=== PATIENT | female | born 1970 | race Caucasian/White ===

== ENCOUNTER 2017-10-22 10:35 | Emergency (ER) | payer OTHER ==
[~2017-10-22] VITALS: Ht 165.1 cm; Wt 108.5 kg
[~2017-10-22 10:35] MED LIST: NAPR250T57 PO; NAPR500 PO
[2017-10-22 10:44] VITALS: BP 124/82; PULSE 75; RESP 18; TEMP 97.5; O2SAT 97
[2017-10-22] MEDS ORDERED: IBUP1TAB7 PO (11:44)
[2017-10-22] MEDS ORDERED: TRAM50TA PO (11:44)
--- NOTE | 2017-10-22 11:44 | PD ---
HPI Chief Complaint: Injury Time Seen by Provider: 11:31 Travel History International Travel<30 days: No Contact w/Intl Traveler<30days: No Traveled to known affect area: No History of Present Illness HPI 46-year-old female presents to emergency department with complaint of left knee pain since last night after climbing from the backseat of her car to her front seat of the car and getting her knee stuck. Denies paresthesias, loss of sensation to the affected extremity. Reports decreased flexion. Has been ambulatory on the extremity since the injury. Has taken tramadol for pain; last taken last night. Rates pain 10/10. Worse with flexion. Pain is to the medial aspect of the knee. Allergies to tetanus. Has a primary care provider she can follow-up with. No other medical complaints. No other modifying factors or associated signs and symptoms. PFSH Past Medical History Cancer: No Cardiovascular Problems: No Diabetes: No Diminished Hearing: No Glaucoma: No Hepatitis: No Hiatal Hernia: No Hypertension: No Immune Disorder: Yes (LUPUS) Respiratory: Yes (PNEUMONIA AND BRONCHITIS 07/2011) Immunizations Current: No Thyroid Disease: No ?: Not Menopausal: No : 3 Para: 2 Miscarriage: 1 Tubal Ligation: Yes Past Surgical History Section: Yes Gynecologic Surgery: Yes (UTERINE ABLATION) Other Surgery: Yes Social History Alcohol Use: No Tobacco Use: No Substance Use: No Allergies-Medications (Allergen,Severity, Reaction): Coded Allergies: tetanus toxoid, adsorbed (Unverified Allergy, Severe, 02/28/17) LOCAL REACTION AT INJECTION SITE- rash and fever Reported Meds & Prescriptions Reported Meds & Active Scripts Active Tramadol (Tramadol HCl) 50 Mg Tab 50 Mg PO Q4H PRN Ibuprofen 800 Mg Tab 800 Mg PO Q6HR PRN Review of Systems Except as stated in HPI: all other systems reviewed are Neg Physical Exam Narrative GENERAL: Well-nourished, well-developed female patient, in no acute distress; afebrile, nontoxic-appearing SKIN: Warm and dry. HEAD: Atraumatic. Normocephalic. EYES: Pupils equal and round. No scleral icterus. No injection or drainage. ENT: Mucosa pink and moist. Airway patent. NECK: Trachea midline. CARDIOVASCULAR: Regular rate. RESPIRATORY: No accessory muscle use. GASTROINTESTINAL: Obese. MUSCULOSKELETAL: Left knee edematous, nonerythematous, and without ecchymosis; unable to assess range of motion secondary to pain and patient guarding; point tenderness to the medial aspect; unable to assess joint stability secondary to patient guarding; no obvious deformity. Left lower extremity is supple and non- tense with 2+ pedal pulse and sensory intact and without erythema or edema. No cyanosis. No obvious injury. NEUROLOGICAL: Awake and alert. Oriented 3. No obvious cranial nerve deficits. Motor grossly within normal limits. Normal speech. PSYCHIATRIC: Appropriate mood and affect; insight and judgment normal. Data Data Last Documented VS Vital Signs Date Time Temp Pulse Resp B/P (MAP) Pulse Ox O2 Delivery O2 Flow Rate FiO2 10/22/17 10:44 97.5 75 18 124/82 (96) 97 Orders Orders Knee, Complete (4vws) (10/22/17 11:36) Ice/Cold Pack (10/22/17 11:36) Crutches (10/22/17 11:36) Tramadol (Ultram) (10/22/17 11:45) Canvas Knee Splint (Cks) (10/22/17 ) Ed Discharge Order (10/22/17 13:43) MDM Medical Decision Making Medical Screen Exam Complete: Yes Emergency Medical Condition: Yes Medical Record Reviewed: Yes Differential Diagnosis Knee strain, knee injury, knee fracture Narrative Course 46-year-old female with left knee injury. Tramadol and left knee x-ray ordered. 1344: Left knee x-ray with no acute findings. Discussed findings with the patient. Canvas knee splint ordered. Crutches provided for support. Ibuprofen and tramadol prescribed for home. Instructed patient to follow-up with orthopedics as needed. Instructed patient to follow up with primary care provider. Patient verbalizes understanding and agreement with treatment plan. Patient is medically cleared and stable for discharge. Discussed reasons to return to the emergency department. Patient agrees with treatment plan. The patients vital signs are stable and the patient is stable for outpatient follow- up and treatment. Patient discharged home, stable and in no acute distress. Diagnosis Primary Impression: Left knee injury Qualified Codes: S89.92XA - Unspecified injury of left lower leg, initial encounter Referrals: Orthopaedic Surgeon Primary Care Physician Patient Instructions: Crutch Instructions (ED), General Instructions, Knee Sprain (ED) Additional Instructions: Tylenol or ibuprofen as needed and as directed to reduce pain and inflammation Rest, ice, compress, and elevate extremity to decrease pain and inflammation Knee brace for support Crutches for support Avoid aggravating activity; increase activity as tolerated Follow-up with primary care provider Follow-up with orthopedics Return to the emergency department immediately with worsening symptoms Med/Other Pt SpecificInfo: Prescription(s) given Scripts Tramadol (Tramadol) 50 Mg Tab 50 MG PO Q4H Y for PAIN, #8 TAB 0 Refills Prov: Susanna Lozano 10/22/17 Ibuprofen (Ibuprofen) 800 Mg Tab 800 MG PO Q6HR Y for PAIN, #30 TAB 0 Refills Prov: Susanna Lozano 10/22/17 Disposition: 01 DISCHARGE HOME Condition: Stable Susanna Lozano Oct 22, 2017 11:44
[2017-10-22] MEDS ORDERED: traMADol HCL 50 MG TAB PO ONE (11:45)
--- NOTE | 2017-10-22 12:46 | RADRPT ---
EXAM DATE/TIME: 10/22/2017 12:09 [facility] COMPARISON: No previous studies available for comparison. INDICATIONS : Left knee pain MEDICAL HISTORY : None. SURGICAL HISTORY : None. ENCOUNTER: Initial ACUITY: 1 day PAIN SCORE: 9/10 LOCATION: Left knee FINDINGS: Four view examination of the left knee demonstrates no evidence of fracture or dislocation. Bony min eralization is normal. The articular surfaces are intact. The suprapatellar soft tissues have a nor mal configuration. CONCLUSION: Unremarkable examination of the left knee. Maricruz Olivo MD on October 22, 2017 at 12:44 Board Certified Radiologist. This report was verified electronically.
== END 2017-10-22 14:11 | disposition home or self-care (01) ==
LOC: NEPD 10:35
DX: S89.92XA Unspecified injury of left lower leg, initial encounter (principal); X58.XXXA Exposure to other specified factors, initial encounter
CPT/HCPCS: 73564; 99283; E0113; L1830